=== PATIENT | male | born 1950 | race Caucasian/White ===

== ENCOUNTER → 2021-09-17 | Outpatient (CLI) | payer OTHER ==
--- NOTE | 2021-09-17 15:35 | RAD ---
US TESTICULAR History: Reason: TESTICULAR PAIN / Spl. Instructions: / History: Comparison: None. Technique: Multiple grayscale, color flow Doppler and Doppler spectral analysis images of the scrotum are obtained. Findings: Right testicle measures 3.8 x 3.2 x 2.3 cm. Mildly heterogeneous appearance compared to the left. No discrete mass identified. Normal Doppler flow to the right testicle. Right epididymal head cyst milagro ures 0.5 x 2.5 x 0.5 cm. Left testicle measures 2.6 x 2.9 x 3.5 cm. Left testicle demonstrates normal parenchymal echogenici ty. Left testicular cyst measures 0.5 x 0.6 x 0.6 cm. The left epididymis is unremarkable. Normal Dop pler flow to the left testicle. Small right hydrocele. Right varicocele. No scrotal hyperemia or swelling. IMPRESSION: 1. Mild heterogeneous appearance of the right testicle, may relate to prior inflammation. 2. Small right hydrocele and varicocele. 3. Left testicular cyst. 4. Right epididymal head cyst. Electronically signed by: Hossein Hodges DO (09/17/2021 3:33 PM) [facility]
== END ==
LOC: US 14:43
PROVIDERS: ATTEND Physician Assistant
DX: I86.1 Scrotal varices (principal); N43.3 Hydrocele, unspecified; N44.2 Benign cyst of testis
CPT/HCPCS: 76870